=== PATIENT | female | born 1960 | race Two or more races ===

== ENCOUNTER 2018-08-21 11:45 | Outpatient (CLI) | payer OTHER ==
[~2018-08-21 11:45] MED LIST: ANTIVERT PO; DOXEPIN HCL50 MG PO; SYNTHROID88 MCG PO; [UNRECOGNIZED DRUG - OTHER] PO
== END 2018-08-21 11:50 | disposition home or self-care (01) ==
LOC: RAD 501 11:45
DX: N20.1 Calculus of ureter (principal)

== ENCOUNTER → 2018-08-27 | Outpatient (CLI) | payer OTHER | END | disposition home or self-care (01) | LOC: RAD 501 11:04 | DX: N20.1 Calculus of ureter (principal) ==

== ENCOUNTER → 2018-09-01 | Outpatient (CLI) | payer OTHER | END | disposition home or self-care (01) | LOC: RAD 501 09:44 | DX: N20.1 Calculus of ureter (principal); I11.0 Hypertensive heart disease with heart failure ==

== ENCOUNTER 2018-09-18 13:09 | Outpatient (CLI) | payer OTHER | END 2018-09-18 13:14 | disposition home or self-care (01) | LOC: RAD 501 13:09 | DX: N20.1 Calculus of ureter (principal) ==